=== PATIENT | female | born 1995 | race Two or more races ===

== ENCOUNTER 2019-10-23 10:22 | Emergency (ER) | payer OTHER, SELFPAY ==
[2019-10-23] VITALS (9 sets, daily range): BP systolic 108–122; BP diastolic 76–101; PULSE 62–73; RESP 14–20; TEMP 36.7; O2SAT 99–100
--- NOTE | ~2019-10-23 | XR_ITS ---
EXAMINATION: XR chest 1V portable DATE: 10/23/2019 11:31 INDICATION: Shortness of breath TECHNIQUE: frontal view of the chest was obtained. COMPARISON: Chest radiograph dated 01/22/2019 FINDINGS: The lungs remain clear with no focal airspace opacities, pulmonary edema, pleural effusion or pneumot horax. The cardiomediastinal silhouette is normal. Visualized bones and soft tissues are unremarkable . IMPRESSION: 1. No acute cardiopulmonary disease. Reviewed, dictated and finalized at location A.
--- NOTE | 2019-10-23 10:33 | ED.GENADULT ---
HPI - General Adult General Chief complaint: Shortness of Breath/Dyspnea Stated complaint: abdominal/chest pain/facial numbness Time Seen by Provider: 10/23/19 10:32 Source: patient Mode of arrival: ambulatory Limitations: no limitations History of Present Illness HPI narrative: Patient is here with complaint of abdominal and chest pain. She states it started as cramping in her lower abdomen traveled upward to pressure in her chest. She became anxious and then felt tingling across her face. All her symptoms have resolved. There is a family history of early heart disease in both her father and her aunt, her aunt from a heart attack in her 30s. She is currently on medication for an ear infection, antibiotics and pain medication. Onset (ago): minute(s) Location: chest and abdomen Severity: moderate Quality: sharp Pain Consistency: constant and now resolved Relieving factors: none Exacerbating factors: none Associated symptoms: shortness of breath Treatments prior to arrival: none Related Data Home Medications Medication Instructions Recorded Confirmed ciprofloxacin-dexamethasone drp 10/23/19 [Ciprodex] clindamycin HCl 10/23/19 hydrocodone-acetaminophen 10/23/19 ondansetron 10/23/19 Allergies Allergy/AdvReac Type Severity Reaction Status Date / Time Penicillins Allergy Itching Verified 10/23/19 10:32 Review of Systems Review of Systems: All systems reviewed & are unremarkable except as noted in HPI and below Constitutional: Constitutional: Reports as per HPI [facility] Surgical History Surgical History History of tubal ligation Hx of tonsillectomy Family History Family History (Updated 10/23/19 @ 11:28 by Anahy Bah PA-C) Father Acute myocardial infarction Other , paternal aunt Acute myocardial infarction Social History Social History (Updated 10/23/19 @ 11:29 by Anahy Bah PA-C) Smoking status: Never smoker Alcohol intake: never Substance use: never Living arrangements: with family Occupation/Education: unemployed Gender identity (if verbalized by the patient): Female Exam Const: General: no acute distress and alert Orientation/consciousness: patient oriented x3 HENMT: Head: normal to inspection Ears: TM's normal bilaterally (right occluded by cerumen, left with wick in place) Eyes: Pupils: Equal, round and reactive pupils present Neck: Carotids: other (no bruit) Chest: Chest palpation & inspection: normal inspection of the chest Other: no tenderness Resp: Effort & Inspection: normal respiratory effort Auscultation: clear to auscultation bilaterally Cardio: Rate: regular rate Rhythm: regular rhythm GI: GI Palp: Yes Soft to palpation Auscultation: normal bowel sounds Other: mild epigastric pain to palpation : General: Yes no CVA tenderness Skin: General skin exam: normal color Course Course Emergency Course: All labs and diagnostics reviewed with patient. There were no abnormalities, she is symptom-free. Recommend that she follow her up with her primary care physician as scheduled on Friday. Return to the emergency room should she have any chest pain that is radiating, shortness of breath, sweating. Vital Signs Vital signs: Vital Signs Temperature 36.7 C 10/23/19 10:26 Pulse Rate 73 10/23/19 10:26 Respiratory Rate 16 10/23/19 10:26 Blood Pressure 114/76 10/23/19 10:26 Pulse Oximetry 100 10/23/19 10:26 Temperature 36.7 C 10/23/19 10:26 Pulse Rate 73 10/23/19 10:26 Respiratory Rate 16 10/23/19 10:26 Blood Pressure 114/76 10/23/19 10:26 Pulse Oximetry 100 10/23/19 10:26 Medical Decision Making Vital Signs Vital Signs: Vital Signs Temperature 36.7 C 10/23/19 10:26 Pulse Rate 73 10/23/19 10:26 Respiratory Rate 16 10/23/19 10:26 Blood Pressure 114/76 10/23/19 10:26 Pulse Oximetry 100 10/23/19 10:26
--- NOTE | 2019-10-23 11:07 | ECG_ITS ---
Measurements Intervals [place] Rate: 62 P: 50 NC: 141 QRS: 74 QRSD: 92 T: 101 QT: 391 QTc: 400 Interpretive Statements SINUS RHYTHM ST-T WAVE ABNORMALITY IN ANTERIOR LEADS- CONSIDER ISCHEMIA BASELINE ARTIFACT- I, II, III, AVF ABNORMAL ECG Electronically Signed On 10-23-2019 19:31:48 CDT by Ciro Howell D.O.
[2019-10-23 11:32] LABS: Basophils Absolute Auto 0.1 K/mm3 (0.0-0.1); Basophils Percent Auto 0.7 % (0.2-1.2); Eosinophils Percent Auto 18.4 % (0-4.4); Hematocrit 42.1 % (37.0-47.0); Hemoglobin 14.1 g/dL (12.0-15.0); Immature Granulocyte Absolute 0.03 K/mm3 (0.00-0.031); Immature Granulocyte Percent A 0.3 % (0-0.5); Lymphocytes Percent Auto 20.8 % (18.3-44.2); Mean Corpuscular HGB Conc 33.5 g/dl (32-36); Mean Corpuscular Hemoglobin 31.1 pg (26-34); Mean Corpuscular Volume 92.7 fl (80-100); Mean Platelet Volume 11.1 fl (7.4-10.4); Monocytes Absolute Auto 0.8 K/mm3 (0.1-0.6); Monocytes Percent Auto 7.9 % (2.6-8.5); Neutrophils Absolute Auto 5.5 K/mm3 (1.3-6.7); Neutrophils Percent Auto 51.9 % (45.5-73.1); Platelet Count Result 377 k/mm3 (150-375); Red Blood Count 4.54 M/mm3 (4.2-5.4); Red Cell Distribution Width 12.2 % (11.5-14.5); White Blood Count 10.6 K/mm3 (4.5-10.0)
[2019-10-23 11:56] LABS: Troponin I < 0.012 ng/mL (0.000-0.034)
[2019-10-23 12:05] LABS: Alanine Aminotransferase 22 U/L (4-35); Albumin Level 4.5 g/dL (3.5-5.1); Alkaline Phosphatase 108 U/L (38-126); Anion Gap 12 mmol/L (8-16); Aspartate Amino Transferase 46 U/L (14-36); Bilirubin,Total 0.5 mg/dL (0.2-1.3); Blood Urea Nitrogen 3 mg/dL (7-17); Calcium 9.1 mg/dL (8.4-10.2); Carbon Dioxide 24 mmol/L (22-30); Chloride 104 mmol/L (98-107); Estimated CRCL calculation 128 ml/min; Estimated Glomerular Filt Rate > 60; Glucose 86 mg/dL (65-105); Potassium 3.9 mmol/L (3.4-5.0); Sodium 140 mmol/L (137-145)
== END 2019-10-23 13:01 | disposition home or self-care (01) ==
PROVIDERS: Physician Assistant; Emergency Provider Emergency Medicine
DX: K21.9 Gastro-esophageal reflux disease without esophagitis (principal); H66.90 Otitis media, unspecified, unspecified ear; R94.31 Abnormal electrocardiogram [ECG] [EKG]
CPT/HCPCS: 36415; 71045; 80053; 84484; 85025; 93005; 99284

== ENCOUNTER 2021-08-07 19:21 | Emergency (ER) | payer OTHER, SELFPAY ==
[2021-08-07 19:37] VITALS: BP 113/79; PULSE 99; RESP 20; TEMP 36.2; O2SAT 99
--- NOTE | 2021-08-07 20:07 | ED.URI ---
HPI - URI/Sore Throat General Chief Complaint: Upper Respiratory Infection Stated Complaint: sinus problems after mold removed from house Time Seen by Provider: 08/07/21 19:29 History of Present Illness HPI Narrative: Patient is a healthy 26-year-old here for evaluation of congestion, mild sore throat, and productive cough over the past 3 days. Patient states all of her children have similar symptoms. She is attempted Lizzeth, Claritin, and [id number] sore throat medicine without much relief. She denies any fevers, chills, chest pain, shortness of breath, headache, abdominal pain, leg swelling. No trismus, drooling, patient is tolerating her secretions. She is not vaccinated against COVID. She does state that she was removing mold from her bedroom prior to symptom onset, reports she was wearing a mask and using gloves. Related Data Home Medications Medication Instructions Recorded Confirmed ciprofloxacin 0.3 %-dexamethasone drp 10/23/19 0.1 % ear drops,suspension (Ciprodex) clindamycin HCl 300 mg capsule 10/23/19 hydrocodone 5 mg-acetaminophen 325 10/23/19 mg tablet ondansetron 4 mg disintegrating 10/23/19 tablet Allergies Allergy/AdvReac Type Severity Reaction Status Date / Time Penicillins Allergy Itching Verified 08/07/21 20:14 Review of Systems Review of Systems: Gen: Denies fevers or chills Eyes: Denies eye pain or visual change ENT: Reports congestion Respiratory: Reports cough. Denies shortness of breath CV: Denies chest pain or palpitations GI: Denies abdominal pain nausea, emesis or diarrhea denies burning, urgency, frequency or hematuria Musculoskeletal: Denies back pain or muscle pain Neuro: Denies numbness, tingling, weakness or focal weakness Skin: Denies rash Except as documented, all other systems reviewed and negative [facility] Surgical History Surgical History History of tubal ligation Hx of tonsillectomy Family History Family History (Updated 10/23/19 @ 11:28 by Anahy Bah PA-C) Father Acute myocardial infarction Other , paternal aunt Acute myocardial infarction Social History Social History (Updated 10/23/19 @ 11:29 by Anahy Bah PA-C) Smoking status: Never smoker Alcohol intake: never Substance use: never Gender identity (if verbalized by the patient): Female Exam Narrative: APPEARANCE: Well appearing, no pain in distress, well-nourished. Head normocephalic and atraumatic. EYES: PERRLA/EOMI, conjunctivae clear NOSE: No sinus tenderness. No nasal drainage EARS: External ear normal in appearance THROAT: Oropharynx is clear. Mucous membranes are moist. No exudates. No tonsillar swelling. NECK: Supple. No adenopathy, no masses. RESPIRATORY: Airway patent, respirations nonlabored. Clear to auscultation bilaterally, no rales, rhonchi, wheezing. CARDIOVASCULAR: Regular rate and rhythm without murmurs, rubs, or gallops. ABDOMINAL: Normoactive bowel sounds. Soft, nontender, nondistended. No rebound tenderness or guarding. MUSCULOSKELETAL: Extremities are warm and well-perfused. Moves all extremities well. No edema. NEURO: Normal speech. No focal neurologic deficits. SKIN: Skin is warm and dry. No rashes. PSYCHIATRIC: Normal affect/mood.. Course Vital Signs Vital signs: Vital Signs Temperature 97.1 F L 08/07/21 19:37 Pulse Rate 99 08/07/21 19:37 Respiratory Rate 20 08/07/21 19:37 Blood Pressure 113/79 08/07/21 19:37 Pulse Oximetry 99 08/07/21 19:37 Oxygen Delivery Room Air 08/07/21 19:37 Temperature 97.1 F L 08/07/21 19:37 Pulse Rate 99 08/07/21 19:37 Respiratory Rate 20 08/07/21 19:37 Blood Pressure 113/79 08/07/21 19:37 Pulse Oximetry 99 08/07/21 19:37 Oxygen Delivery Room Air 08/07/21 20:12 MDM - URI/Sore Throat MDM Narrative Medical decision making narrative: 26-year-old female here for evaluation of
[2021-08-07] MEDS: BENZONATATE 100 MG CAPSULE PO (20:11)
[2021-08-07 22:05] LABS: SARS-CoV-2 RNA PCR Negative
== END 2021-08-07 22:57 | disposition home or self-care (01) ==
PROVIDERS: Physician Assistant; Emergency Provider Emergency Medicine; PCP Family Medicine
DX: J06.9 Acute upper respiratory infection, unspecified (principal); Z20.822 Contact with and (suspected) exposure to COVID-19; Z28.310 Unvaccinated for COVID-19
CPT/HCPCS: 99283; A9270; C9803; U0003; U0005

== ENCOUNTER 2022-03-20 14:58 | Emergency (ER) | payer OTHER, SELFPAY ==
--- NOTE | 2022-03-20 15:00 | ED.URI ---
HPI - URI/Sore Throat General Chief Complaint: Upper Respiratory Infection Stated Complaint: Sore Throat Time Seen by Provider: 03/20/22 14:59 Source: patient Mode of arrival: ambulatory Limitations: no limitations History of Present Illness HPI Narrative: Gely is a 27-year-old female patient presenting to the clinic today with complaints of sore throat , body aches, chills, cough, nasal congestion, headache, and ear pain x4-5 days. She reports fever as high as 103F. MD elicited complaint: sore throat and nasal congestion Related Data Allergies Allergy/AdvReac Type Severity Reaction Status Date / Time Penicillins Allergy Itching Verified 03/20/22 15:00 Review of Systems Review of Systems: Pertinent positives per HPI. Patient denies any rash, headache, visual changes, dizziness, shortness of breath, chest pain, palpitations, nausea, vomiting, diarrhea, constipation, abdominal pain, or any urinary issues. PMFSH Surgical History Surgical History History of tubal ligation Hx of tonsillectomy Family History Family History Father Acute myocardial infarction Other , paternal aunt Acute myocardial infarction Social History Social History Smoking status: Never smoker Alcohol intake: never Substance use: never Gender identity (if verbalized by the patient): Female Comments At the time of my signature, I reviewed and agree with the nursing past medical, surgical, social, and family history. There is no relevant family history pertinent to the patient complaint. Exam Narrative: General: Well-developed, well nourished, in no apparent distress Head: Normocephalic, atraumatic Eyes: Pupils equally round and reactive to light bilaterally, EOM intact, sclera and conjunctive clear, no discharge, lids normal Ears: TMs intact and clear, ear canals clear, no drainage, grossly hearing normal. Nose: Nares patent, no discharge, no inflammation, no sinus tenderness. Mouth: Oral pharynx without lesions or masses, good dentition, MMM. Neck: Supple, trachea midline, no enlargement of anterior or posterior cervical nodes, no thyroid masses or goiter palpable. Cardio: Regular rate and rhythm, s1 and s2 normal, no murmur appreciated. Resp: Clear to auscultation bilaterally, no rhonchi, rales, wheezing or rubs Course Course Emergency Course: Portions of this record may have been created with voice recognition software. Level of Care: Express Care Visit Vital Signs Vital signs: Vital Signs Temperature 36.3 C L 03/20/22 15:04 Pulse Rate 91 03/20/22 15:04 Respiratory Rate 16 03/20/22 15:04 Blood Pressure 107/75 03/20/22 15:04 Pulse Oximetry 98 03/20/22 15:04 Oxygen Delivery Room Air 03/20/22 15:04 Temperature 36.3 C L 03/20/22 15:04 Pulse Rate 91 03/20/22 15:04 Respiratory Rate 16 03/20/22 15:04 Blood Pressure 107/75 03/20/22 15:04 Pulse Oximetry 98 03/20/22 15:04 Oxygen Delivery Room Air 03/20/22 15:04 Vital signs reviewed MDM - URI/Sore Throat MDM Narrative Medical decision making narrative: At the time of visit patient is resting comfortably on the exam table. Strep screen and influenza testing were negative in the clinic today. I suspect the patient has viral pharyngitis/ upper respiratory infection. Supportive measures were discussed with the patient she voiced understanding discharge instructions and agrees to treatment plan. Differential Diagnosis Differential diagnosis: Likely upper respiratory infection, otitis media, sinusitis, viral infection, bronchitis, influenza, pharyngitis and other ( COVID) Discharge Plan Discharge Clinical Impression: Viral infection Upper respiratory infection Qualifiers: URI type: unspecified URI Qualified Code(s): J06.9 - Acute u
[2022-03-20 15:04] VITALS: BP 107/75; PULSE 91; RESP 16; TEMP 36.3; O2SAT 98
== END 2022-03-20 15:34 | disposition home or self-care (01) ==
PROVIDERS: Emergency Provider Nurse Practitioner Family; PCP Family Medicine
DX: B34.9 Viral infection, unspecified (principal); J06.9 Acute upper respiratory infection, unspecified; J02.9 Acute pharyngitis, unspecified
CPT/HCPCS: 87081; 87804; 87880; 99213; G0463

== ENCOUNTER 2022-05-13 03:22 | Emergency (ER) | payer OTHER, SELFPAY ==
[2022-05-13 03:26] VITALS: BP 119/78; PULSE 85; RESP 16; TEMP 36.5; O2SAT 98
--- NOTE | 2022-05-13 03:54 | ED.GENADULT ---
HPI - General Adult General Chief complaint: Ear Stated complaint: sharp right ear pain, sore throat Time Seen by Provider: 05/13/22 03:45 History of Present Illness HPI narrative: Patient 26-year-old female who presents emerged part with chief complaint of right ear pain. Patient reports that she several bit of sinus drainage and reports that she has had pain in her right ear that started this evening. The patient reports that she developed nausea and reports that pain is worse with movement Related Data Allergies Allergy/AdvReac Type Severity Reaction Status Date / Time Penicillins Allergy Itching Verified 03/20/22 15:00 Review of Systems Review of Systems: A 10 system review of systems was completed on the patient and is negative except for what is stated in the HPI. Nursing and ancillary documentation was reviewed. [facility] Surgical History Surgical History History of tubal ligation Hx of tonsillectomy Family History Family History Father Acute myocardial infarction Other , paternal aunt Acute myocardial infarction Social History Social History Smoking status: Never smoker Alcohol intake: never Substance use: never Living arrangements: with family Occupation/Education: unemployed Gender identity (if verbalized by the patient): Female Exam Narrative: GENERAL: Well-appearing, well-nourished, and in no acute distress. HEAD: Normocephalic, atraumatic. EYES: PERRLA and EOMI. ENT: Nares clear, no rhinorrhea or epistaxis. Mucous membranes moist. There is cerumen present in the right external auditory canal showing significant impaction but there is erythema of the tympanic membrane. NECK: Supple. CHEST: Clear to auscultation. No respiratory distress. HEART: Regular rate and rhythm. No murmur heard. Normal peripheral pulses. ABDOMEN: Soft, nontender, nondistended, normal active bowel sounds. EXTREMITIES: Normal range of motion. No edema. SKIN: Warm, dry, no rash. NEURO: No focal deficits. Alert and oriented x3. PSYCH: Normal mood and affect. Course Vital Signs Vital signs: Vital Signs Temperature 36.5 C 05/13/22 03:26 Pulse Rate 85 05/13/22 03:26 Respiratory Rate 16 05/13/22 03:26 Blood Pressure 119/78 05/13/22 03:26 Pulse Oximetry 98 05/13/22 03:26 Oxygen Delivery Room Air 05/13/22 03:26 Temperature 36.5 C 05/13/22 03:26 Pulse Rate 85 05/13/22 03:26 Respiratory Rate 16 05/13/22 03:26 Blood Pressure 119/78 05/13/22 03:26 Pulse Oximetry 98 05/13/22 03:26 Oxygen Delivery Room Air 05/13/22 03:26 Medical Decision Making MDM Narrative Medical decision making narrative: Patient's ear was irrigated by the nursing staff which cleared out the cerumen impaction. Patient was started on Omnicef and will also be started on a prescription for Zofran and given a prescription for ibuprofen. Differential diagnosis included cerumen impaction otitis media sinus Vital Signs Vital Signs: Vital Signs Temperature 36.5 C 05/13/22 03:26 Pulse Rate 85 05/13/22 03:26 Respiratory Rate 16 05/13/22 03:26 Blood Pressure 119/78 05/13/22 03:26 Pulse Oximetry 98 05/13/22 03:26 Oxygen Delivery Room Air 05/13/22 03:26 Temperature 36.5 C 05/13/22 03:26 Pulse Rate 85 05/13/22 03:26 Respiratory Rate 16 05/13/22 03:26 Blood Pressure 119/78 05/13/22 03:26 Pulse Oximetry 98 05/13/22 03:26 Oxygen Delivery Room Air 05/13/22 03:26 Discharge Plan Discharge Clinical Impression: Acute right otitis media Cerumen impaction Qualifiers: Laterality: right Qualified Code(s): H61.21 - Impacted cerumen, right ear Patient Disposition: Home, Self-Care Condition: Stable Instructions: Antibiotic Form, Ear Infection (ED), Earache (
[2022-05-13] MEDS: IBUPROFEN 400 MG TABLET 800 MG PO (04:07)
[2022-05-13] MEDS: ONDANSETRON HCL ODT 4 MG TABLET PO (04:07)
[2022-05-13] MEDS: CEFDINIR 300 MG CAPSULE PO (04:12)
== END 2022-05-13 04:15 | disposition home or self-care (01) ==
LOC: ANHED 04:03
PROVIDERS: Emergency Provider Emergency Medicine; PCP Family Medicine
DX: H66.91 Otitis media, unspecified, right ear (principal)
CPT/HCPCS: 99283; A9270

== ENCOUNTER 2022-11-14 20:43 | Emergency (ER) | payer BC, OTHER, SELFPAY ==
[2022-11-14 20:48] VITALS: BP 119/81; PULSE 78; RESP 20; TEMP 36.3; O2SAT 100
--- NOTE | 2022-11-14 22:18 | PC.NURSE ---
Pt walked out without being seen by provider at 2219.
== END 2022-11-14 23:32 | disposition left against medical advice (07) ==
LOC: ANHED 22:28
PROVIDERS: PCP Family Medicine
DX: R51.9 Headache, unspecified (principal)
CPT/HCPCS: 99199

== ENCOUNTER 2022-11-15 08:32 | Emergency (ER) | payer OTHER, SELFPAY ==
[2022-11-15] VITALS (18 sets, daily range): BP systolic 101–122; BP diastolic 67–91; PULSE 72–73; RESP 17–18; TEMP 36.4; O2SAT 99–100
--- NOTE | 2022-11-15 09:10 | ED.HA ---
HPI - Headache General Chief Complaint: Headache Stated Complaint: migraine Time Seen by Provider: 11/15/22 09:07 Source: patient and family (spouse) Mode of arrival: ambulatory Limitations: no limitations History of Present Illness HPI Narrative: Patient is a pleasant 27-year-old female with a past medical history of migraines who presents emergency department ambulatory with a steady gait with her spouse at bedside for evaluation of a migraine headache. Patient states she has a history of migraines and typically last 2-3 days however this was the day before. She states that the pain has been continuous and normal so humerus sensation. She has also had chills. The pain starts in bilateral temples and goes around to the base of her skull. She states she has had a lot of nausea and the head pain is worse with movement of her head and that is when she also becomes nauseated. It is she denies any fever. She had chills. She denies vomiting, diarrhea, numbness or tingling upper extremities, neck pain, recent exposure to any type of COVID/flu or other viral illness, recent head injury, vision loss, chance of or any other symptoms. Related Data Allergies Allergy/AdvReac Type Severity Reaction Status Date / Time Penicillins Allergy Itching Verified 11/15/22 09:04 Review of Systems Review of Systems: CONSTITUTIONAL: chills. Denies fever or sweats. EYES: light sensitivity. Denies visual changes, redness, or discharge. ENT: sound sensitivity. Denies rhinorrhea, congestion, sore throat, or otalgia. CARDIOVASCULAR: Denies chest pain, palpitations, or edema. RESPIRATORY: Denies cough or dyspnea. GASTROINTESTINAL: nausea. Denies abdominal pain, vomiting, or diarrhea. GENITOURINARY: Denies dysuria or hematuria. SKIN: Denies rash or itching. MUSCULOSKELETAL: Denies back pain, joint pain, or myalgia. NEUROLOGIC: headache present. denies numbness, or weakness. PSYCHIATRIC: Denies anxiety or depression. All systems reviewed & are unremarkable except as noted in HPI and below PMFSH Surgical History Surgical History History of tubal ligation Hx of tonsillectomy Family History Family History Father Acute myocardial infarction Other , paternal aunt Acute myocardial infarction Social History Social History Smoking status: Never smoker Alcohol intake: never Substance use: never Living arrangements: with family Occupation/Education: unemployed Gender identity (if verbalized by the patient): Female Exam Narrative: GENERAL: Well-appearing, well-nourished, and in no acute distress. lying on exam stretcher in dark with sunglasses on. HEAD: Normocephalic, atraumatic. EYES: PERRLA and EOMI. ENT: Nares clear, no rhinorrhea or epistaxis. Mucous membranes moist. NECK: Supple. CHEST: Clear to auscultation. No respiratory distress. HEART: Regular rate and rhythm. No murmur heard. Normal peripheral pulses. ABDOMEN: Soft, nontender, nondistended, normal active bowel sounds. EXTREMITIES: Normal range of motion. No edema. SKIN: Warm, dry, no rash. NEURO: No focal deficits. Alert and oriented x3. CN II-XII grossly intact. UE and LE distal pulses, sensation, cap refill, temperature, patellar reflex and strength intact and equal bilaterally.?steady gait. negative Romberg PSYCH: Normal mood and affect. Course Reevaluation(s) Reevaluation #1: patient sleeping at this time Date: 11/15/22 Time: 10:25 Reevaluation #2: patient states her migraine pain has improved, she is comfortable going home at this time. spouse will be driving her Date: 11/15/22 Time: 10:48 Vital Signs Vital signs: Vital Signs Temperature 97.5 F L 11/15/22 08:43 Pulse Rate 72 11/15/22 08:43 Respiratory Rate 18 11/15/22 08:43 Blood Pressure 122/74 11/15/22 0
[2022-11-15] MEDS: SODIUM CHLORIDE 0.9% IV 1,000 ML 999 ML IV CONT (09:46)
[2022-11-15] MEDS: KETOROLAC 30 MG/ML VIAL (*BKC) IV PUSH (09:47)
[2022-11-15] MEDS: ONDANSETRON INJ 4 MG/2 ML VIAL IV PUSH (09:47)
[2022-11-15] MEDS: DIHYDROERGOTAMINE MESYLATE 1 MG/ML AMP IV PUSH (09:53)
== END 2022-11-15 11:21 | disposition home or self-care (01) ==
PROVIDERS: Emergency Provider Nurse Practitioner; PCP Family Medicine
DX: G43.009 Migraine without aura, not intractable, without status migrainosus (principal)
CPT/HCPCS: 96361; 96374; 96375; 99284; J1110; J1885; J2405; J7030

== ENCOUNTER 2023-01-03 12:57 | Emergency (ER) | payer OTHER, SELFPAY ==
[2023-01-03 13:33] VITALS: BP 125/86; PULSE 89; RESP 16; TEMP 37.2; O2SAT 100
--- NOTE | 2023-01-03 14:21 | ED.URI ---
HPI - URI/Sore Throat General Chief Complaint: Upper Respiratory Infection Stated Complaint: cough,sinus drainage,chest congestion Time Seen by Provider: 01/03/23 14:04 Source: patient and RN notes reviewed Mode of arrival: ambulatory Limitations: no limitations History of Present Illness HPI Narrative: Patient presents today with a 2 day history of cough, rhinorrhea, postnasal drip, chest congestion, and fever up to 100.5. She has been taking Claritin, Mucinex DM with some mild relief. Children are also ill with similar symptoms. Related Data Home Medications Medication Instructions Recorded Confirmed No Home Medications 01/03/23 01/03/23 Allergies Allergy/AdvReac Type Severity Reaction Status Date / Time Penicillins Allergy Itching Verified 01/03/23 14:04 Review of Systems Review of Systems: CONSTITUTIONAL: Denies body aches, chills, or sweats.+ fever EYES: Denies visual changes, redness, or discharge. ENT: Denies congestion, sore throat, or otalgia.+ rhinorrhea, postnasal drip CARDIOVASCULAR: Denies chest pain, palpitations, or edema. RESPIRATORY: Denies dyspnea.+ cough, chest congestion GASTROINTESTINAL: Denies abdominal pain, nausea, vomiting, or diarrhea. GENITOURINARY: Denies dysuria or hematuria. SKIN: Denies rash, itching, or wounds. MUSCULOSKELETAL: Denies back pain, joint pain, or myalgia. NEUROLOGIC: Denies headache, numbness, tingling, or weakness. PSYCH: Denies depression or anxiety. [facility] Surgical History Surgical History History of tubal ligation Hx of tonsillectomy Family History Family History Father Acute myocardial infarction Other , paternal aunt Acute myocardial infarction Social History Social History Smoking status: Never smoker Alcohol intake: never Substance use: never Living arrangements: with family Occupation/Education: unemployed Gender identity (if verbalized by the patient): Female Comments At time of signature, I have reviewed and agree with nursing past medical, surgical, social and family history unless otherwise noted. Please see nursing chart for further information. There is no relevant family history pertinent to the presenting complaint Exam Narrative: GENERAL: Well-appearing, well-nourished, and in no acute distress. HEAD: Normocephalic, atraumatic. EYES: EOMI. No redness or drainage. Conjunctivae normal. ENT: Mucous membranes pink and moist. Nares clear. No rhinorrhea. TMs normal bilaterally. Throat normal. Uvula midline. NECK: Normal AROM. Supple. No lymphadenopathy. CHEST: No respiratory distress. Clear to auscultation. HEART: Regular rate and rhythm. No murmur appreciated. Normal peripheral pulses. EXTREMITIES: Normal range of motion. No edema. SKIN: Warm, dry, no rash. Capillary refill normal. Normal skin turgor. NEURO: No focal deficits. Alert and oriented x3. Gait steady. PSYCH: Normal affect. No signs of depression or anxiety. Course Course Level of Care: Express Care Visit Vital Signs Vital signs: Vital Signs Temperature 99.0 F 01/03/23 13:33 Pulse Rate 89 01/03/23 13:33 Respiratory Rate 16 01/03/23 13:33 Blood Pressure 125/86 01/03/23 13:33 Pulse Oximetry 100 01/03/23 13:33 Oxygen Delivery Room Air 01/03/23 13:33 Temperature 99.0 F 01/03/23 13:33 Pulse Rate 89 01/03/23 13:33 Respiratory Rate 16 01/03/23 13:33 Blood Pressure 125/86 01/03/23 13:33 Pulse Oximetry 100 01/03/23 13:33 Oxygen Delivery Room Air 01/03/23 13:33 Reviewed. Pt has been instructed to follow up with her PCP regarding her elevated blood pressure today. MDM - URI/Sore Throat MDM Narrative Medical decision making narrative: Rapid strep negative. Culture pending. Symptoms are likely viral in foreign
== END 2023-01-03 15:34 | disposition home or self-care (01) ==
PROVIDERS: Emergency Provider Nurse Practitioner; PCP Family Medicine
DX: J06.9 Acute upper respiratory infection, unspecified (principal)
CPT/HCPCS: 87081; 87147; 87880; 99213; G0463

== ENCOUNTER 2023-09-06 15:59 | Emergency (ER) | payer OTHER, SELFPAY ==
--- NOTE | ~2023-09-06 | XR_ITS ---
EXAMINATION: XR ankle LT min 3V DATE: 09/06/2023 16:34 INDICATION: Left ankle injury. TECHNIQUE: 3 views of left ankle were obtained. COMPARISON: None. FINDINGS: Bone alignment is normal. No fracture. Joint spaces are normal. There is ankle soft tissue swelling. IMPRESSION: 1. No fracture. Reviewed, dictated and finalized at location E. IMPRESSION: 1. No fracture.
--- NOTE | ~2023-09-06 | US_ITS ---
EXAMINATION: US venous doppler LE RT DATE: 09/06/2023 18:08 INDICATION: Right lower limb pain and swelling. TECHNIQUE: Grayscale ultrasound images without and with compression and Doppler ultrasound images of the right lower extremity veins were obtained. COMPARISON: None. FINDINGS: The visualized portions of right common femoral vein, profunda (deep) femoral vein, femoral vein, pop liteal vein, peroneal veins, posterior tibial veins, and greater saphenous vein outflow are patent. IMPRESSION: 1. No deep venous thrombosis. Reviewed, dictated and finalized at location E.
--- NOTE | ~2023-09-06 | XR_ITS ---
EXAMINATION: XR ankle RT min 3V DATE: 09/06/2023 16:33 INDICATION: Right ankle injury. TECHNIQUE: 3 views of right ankle were obtained. COMPARISON: None. FINDINGS: Bone alignment is normal. No fracture. There is mild midfoot osteoarthritis. There is an en thesophyte at plantar aspect of calcaneal tuberosity. Ankle soft tissue swelling is noted. IMPRESSION: 1. Mild midfoot osteoarthritis. Reviewed, dictated and finalized at location E.
[2023-09-06 16:11] VITALS: BP 129/76; PULSE 75; RESP 20; TEMP 36.6; O2SAT 98
--- NOTE | 2023-09-06 16:19 | ED.LOWEXIN ---
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 She is complaining of 8/10 pain. It has become difficult to bare weight on the right. She felt/heard a snap/ pop . She took pain medication yesterday and today, Excedrin at 11:30. She was also around ticks and pulled at least one off her her immediately after finding them. Does not believe any were on for 24 hours and she was able to remove the entire insect. No prior surgery on them. She is having some paresthesias in her right foot and mid calf. No pain in proximal calves. Patient states she has a high pain tolerance after having a natrual . Related Data Allergies Allergy/AdvReac Type Severity Reaction Status Date / Time Penicillins Allergy Itching Verified 09/06/23 16:01 [facility] Surgical History Surgical History History of tubal ligation Hx of tonsillectomy Family History Family History Father Acute myocardial infarction Other , paternal aunt Acute myocardial infarction Social History Social History (Updated 09/08/23 @ 10:02 by Negar Pichardo MD) Smoking status: Never smoker Alcohol intake: never Substance use: never Living arrangements: with family Additional living arrangements comments: and at least 1 child Occupation/Education: unemployed Gender identity (if verbalized by the patient): Female Exam Narrative: GENERAL: Well-appearing, well-nourished, and in no acute distress. HEAD: Normocephalic, atraumatic. EYES: Non injected, non icteric though appears a bit drowsy ENT: Nares clear, no rhinorrhea or epistaxis. NECK: Supple. CHEST: Speaking in full sentences. No respiratory distress. HEART: Regular rate and rhythm. . ABDOMEN: Soft, nondistended. EXTREMITIES: 1+ pedal edema in right foot. No TTP with calf squeeze bilaterally and no pain with squeeze at proximal tibia/fibula b/l. Only able to demonstrate slight dorsiflexion/plantarflexion on the right due to pain. No ecchymosis over malleoli/midfoot/plantar aspect. SKIN: Warm, dry. Scattered insect bites, none targetoid. NEURO: Alert and oriented . sensation intact throughout feet. PSYCH: Normal mood and affect Course Vital Signs Vital signs: Vital Signs Temperature 97.9 F 09/06/23 16:11 Pulse Rate 75 09/06/23 16:11 Respiratory Rate 20 09/06/23 16:11 Blood Pressure 129/76 09/06/23 16:11 Pulse Oximetry 98 09/06/23 16:11 Temperature 97.9 F 09/06/23 18:00 Pulse Rate 78 09/06/23 18:00 Respiratory Rate 16 09/06/23 18:00 Blood Pressure 118/68 09/06/23 18:00 Pulse Oximetry 100 09/06/23 18:00 MDM - Extremity Injury (Lower) MDM Narrative Medical decision making narrative: Patient presents with bilateral (though R > L) ankle pain and swelling after rolling her ankles while camping. In the emergency department they are afebrile with vital signs within normal limits. Patient given a one time dose of doxycycline given the tick bite exposure, as prophylaxis. Labs unremarkable as is imaging. Jonn wrap applied and patient informed of findings/work up. Advised on R-I-C-E and other conservative management. Reassured about absence of blood clot. Discharged in stable condition. Differential Diagnosis Differential diagnosis: Likely ankle sprain and strain and other (acute heart failure; DVT; fracture/dislocation) Lab Data Attestation: I reviewed the patient's lab results. Lab results narrative:
[2023-09-06] MEDS: DOXYCYCLINE HYCLATE 100 MG TABLET 200 MG PO (16:33)
[2023-09-06] MEDS: HYDROcodone/acetaminophen (*CRX) 5-325 MG TABLET 1 TAB PO (16:34)
[2023-09-06 17:08] LABS: Basophils Absolute Auto 0.1 K/mm3 (0.0-0.1); Basophils Percent Auto 0.7 % (0.2-1.2); Eosinophils Percent Auto 10.4 % (0-4.4); Hematocrit 42.7 % (37.0-47.0); Hemoglobin 14.2 g/dL (12.0-15.0); Immature Granulocyte Absolute 0.03 K/mm3 (0.00-0.031); Immature Granulocyte Percent A 0.3 % (0-0.5); Lymphocytes Absolute Auto 1.74 K/mm3 (0.9-3.2); Lymphocytes Percent Auto 17.4 % (18.3-44.2); Mean Corpuscular HGB Conc 33.3 g/dl (32-36); Mean Corpuscular Hemoglobin 31.7 pg (26-34); Mean Corpuscular Volume 95.3 fl (80-100); Mean Platelet Volume 9.8 fl (7.4-10.4); Monocytes Absolute Auto 0.7 K/mm3 (0.1-0.6); Monocytes Percent Auto 7.4 % (2.6-8.5); Neutrophils Absolute Auto 6.4 K/mm3 (1.3-6.7); Neutrophils Percent Auto 63.8 % (45.5-73.1); Platelet Count Result 343 k/mm3 (150-375); Red Blood Count 4.48 M/mm3 (4.2-5.4); Red Cell Distribution Width 12.1 % (11.5-14.5)
[2023-09-06 17:18] LABS: Prothrombin Time 13.6 Seconds (11.1-14.7)
[2023-09-06 17:19] LABS: Partial Thromboplastin Time 28.2 Seconds (22.3-36.8)
[2023-09-06 17:28] LABS: Anion Gap 6 mmol/L (4-12); Blood Urea Nitrogen 8 mg/dL (7-17); Calcium 8.8 mg/dL (8.4-10.2); Carbon Dioxide 28 mmol/L (22-30); Chloride 106 mmol/L (98-107); Estimated CRCL calculation 98 ml/min; Estimated Glomerular Filt Rate > 60; Glucose 99 mg/dL (65-110); Potassium 3.8 mmol/L (3.4-5.0); Sodium 140 mmol/L (137-145)
[2023-09-06 17:30] LABS: D Dimer 0.56 ug/mL (<0.48)
[2023-09-06 17:37] LABS: NT Pro B Type Natriuretic Pept 53 pg/mL (19.9-100)
[2023-09-06 18:00] VITALS: BP 118/68; PULSE 78; RESP 16; TEMP 36.6; O2SAT 100
[2023-09-06] MEDS: KETOROLAC 30 MG/ML VIAL (*BKC) 15 MG IM (18:47)
== END 2023-09-06 19:01 | disposition home or self-care (01) ==
PROVIDERS: Emergency Provider Student in an Organized Health Care Education/Training Program; PCP Family Medicine
DX: S93.401A Sprain of unspecified ligament of right ankle, initial encounter (principal); S96.911A Strain of unspecified muscle and tendon at ankle and foot level, right foot, initial encounter; T14.8XXA Other injury of unspecified body region, initial encounter; M19.071 Primary osteoarthritis, right ankle and foot; W57.XXXA Bitten or stung by nonvenomous insect and other nonvenomous arthropods, initial encounter; X50.9XXA Other and unspecified overexertion or strenuous movements or postures, initial encounter
CPT/HCPCS: 36415; 73610; 80048; 81025; 83880; 85025; 85380; 85610; 85730; 93971; 96372; 99284; A9270; J1885

== ENCOUNTER 2023-10-02 10:56 | Emergency (ER) | payer OTHER, SELFPAY ==
[2023-10-02 11:05] VITALS: BP 114/75; PULSE 70; RESP 16; TEMP 36.9; O2SAT 98
--- NOTE | 2023-10-02 12:13 | ED.EAR ---
HPI - Ear Problem General Chief complaint: Ear Stated complaint: left ear pain,swelling,decreased hearing Time Seen by Provider: 10/02/23 12:08 Source: patient and RN notes reviewed Mode of arrival: ambulatory Limitations: no limitations History of Present Illness HPI Narrative: Patient presents today complaining of left ear pain with decreased hearing x1 week, worse over the last 4 days. She has been swimming frequently prior to onset of symptoms. She has been taking Tylenol and ibuprofen as well as using warm and cool compresses and swimmer's ear drops without much relief. Denies any additional cold symptoms. No drainage. Related Data Home Medications Medication Instructions Recorded Confirmed cetirizine 10 mg tablet (Zyrtec) 10 mg PO DAILY 10/02/23 10/02/23 Allergies Allergy/AdvReac Type Severity Reaction Status Date / Time Penicillins Allergy Itching Verified 10/02/23 10:58 Review of Systems Review of Systems: CONSTITUTIONAL: Denies body aches, fever, chills, or sweats. EYES: Denies visual changes, redness, or discharge. ENT: Denies rhinorrhea, congestion, sore throat. + left ear pain CARDIOVASCULAR: Denies chest pain, palpitations, or edema. RESPIRATORY: Denies cough or dyspnea. GASTROINTESTINAL: Denies abdominal pain, nausea, vomiting, or diarrhea. GENITOURINARY: Denies dysuria or hematuria. SKIN: Denies rash, itching, or wounds. MUSCULOSKELETAL: Denies back pain, joint pain, or myalgia. NEUROLOGIC: Denies headache, numbness, tingling, or weakness. PSYCH: Denies depression or anxiety. [facility] Surgical History Surgical History History of tubal ligation Hx of tonsillectomy Family History Family History Father Acute myocardial infarction Other , paternal aunt Acute myocardial infarction Social History Social History Smoking status: Never smoker Alcohol intake: never Substance use: never Living arrangements: with family Additional living arrangements comments: and at least 1 child Occupation/Education: unemployed Gender identity (if verbalized by the patient): Female Comments At time of signature, I have reviewed and agree with nursing past medical, surgical, social and family history unless otherwise noted. Please see nursing chart for further information. There is no relevant family history pertinent to the presenting complaint Exam Narrative: GENERAL: Well-appearing, well-nourished, and in no acute distress. HEAD: Normocephalic, atraumatic. EYES: EOMI. No redness or drainage. Conjunctivae normal. ENT: Mucous membranes pink and moist. Nares clear. No rhinorrhea. Right TM and canal normal. Left TM moderately swollen and mildly erythematous with moist thick white material in the canal. Movement and tragal tenderness present. NECK: Normal AROM. MUSCULOSKELETAL: No bony tenderness. EXTREMITIES: Normal range of motion. No edema. SKIN: Warm, dry, no rash. Capillary refill normal. Normal skin turgor. NEURO: No focal deficits. Alert and oriented x3. Gait steady. PSYCH: Normal affect. No signs of depression or anxiety. Course Course Level of Care: Express Care Visit Vital Signs Vital signs: Vital Signs Temperature 98.5 F 10/02/23 11:05 Pulse Rate 70 10/02/23 11:05 Respiratory Rate 16 10/02/23 11:05 Blood Pressure 114/75 10/02/23 11:05 Pulse Oximetry 98 10/02/23 11:05 Oxygen Delivery Room Air 10/02/23 11:05 Temperature 98.5 F 10/02/23 11:05 Pulse Rate 70 10/02/23 11:05 Respiratory Rate 16 10/02/23 11:05 Blood Pressure 114/75 10/02/23 11:05 Pulse Oximetry 98 10/02/23 11:05 Oxygen Delivery Room Air 10/02/23 11:05 Reviewed Medical Decision Making MDM Narrative Medical decision making narrative: Patient's exam i
== END 2023-10-02 12:21 | disposition home or self-care (01) ==
PROVIDERS: Emergency Provider Nurse Practitioner; PCP Family Medicine
DX: H60.502 Unspecified acute noninfective otitis externa, left ear (principal)
CPT/HCPCS: 99213; G0463

== ENCOUNTER 2023-10-03 07:31 | Emergency (ER) | payer OTHER, SELFPAY ==
[2023-10-03 07:33] VITALS: BP 131/78; PULSE 62; RESP 16; TEMP 36.4; O2SAT 100
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
[2023-10-03] MEDS: HYDROGEN PEROXIDE 3% SOLN(*SP) 473 ML BOTTLE IRRIGATION (09:03)
[2023-10-03] MEDS: HYDROcodone/acetaminophen (*CRX) 5-325 MG TABLET 1 TAB PO (09:33)
== END 2023-10-03 09:38 | disposition home or self-care (01) ==
PROVIDERS: Emergency Provider Student in an Organized Health Care Education/Training Program; PCP Family Medicine
DX: H60.92 Unspecified otitis externa, left ear (principal)
CPT/HCPCS: 99283; A9270

== ENCOUNTER 2024-02-11 18:46 | Emergency (ER) | payer OTHER, SELFPAY ==
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
--- NOTE | ~2024-02-11 | XR_ITS ---
EXAMINATION: XR foot RT min 3V DATE: 02/11/2024 22:44 INDICATION: Right foot pain post fall TECHNIQUE: Dorsoplantar, two oblique and lateral views of the right foot were obtained. COMPARISON: None. FINDINGS: Alignment is normal. No fracture. Minimal osteoarthritis of the joints in the mid and forefoot. Soft tissues are unremarkable. IMPRESSION: 1. 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 No acute osseous abnormality. Reviewed, dictated and finalized at location A. GER [employer]PLY CHAIN IMPRESSION: 1. 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 No acute osseous abnor mality.
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
--- NOTE | ~2024-02-11 | XR_ITS ---
EXAMINATION: XR knee RT 3V DATE: 02/11/2024 22:44 INDICATION: Right knee pain post injury TECHNIQUE: Anteroposterior, oblique and crosstable lateral views of the right knee were obtained COMPARISON: None. FINDINGS: Subtle nondisplaced sagittally oriented fracture at the junction of the medial to lateral thirds of t he lateral tibial plateau. No significant fracture gap or incongruity at the articular surface. Small layering lipohemarthrosis. IMPRESSION: 1. Nondisplaced intra-articular fracture of the lateral tibial plateau with small lipohemarthrosis. Reviewed, dictated and finalized at location A. NG HOST IMPRESSION: 1. Nondisplaced intra-articular fracture of the lateral tibial plateau with sma ll lipohemarthrosis.
[2024-02-11 18:59] VITALS: BP 115/76; PULSE 76; RESP 18; TEMP 36.5; O2SAT 100
[2024-02-11 21:56] VITALS: BP 111/78; PULSE 73; RESP 17; TEMP 36.8; O2SAT 100
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
[2024-02-11 22:47] LABS: Basophils Absolute Auto 0.1 K/mm3 (0.0-0.1); Basophils Percent Auto 0.4 % (0.2-1.2); Eosinophils Absolute Auto 0.4 K/mm3 (0-0.3); Eosinophils Percent Auto 2.5 % (0-4.4); Hematocrit 45.6 % (37.0-47.0); Hemoglobin 15.2 g/dL (12.0-15.0); Immature Granulocyte Absolute 0.04 K/mm3 (0.00-0.031); Immature Granulocyte Percent A 0.3 % (0-0.5); Lymphocytes Absolute Auto 1.59 K/mm3 (0.9-3.2); Lymphocytes Percent Auto 11.4 % (18.3-44.2); Mean Corpuscular HGB Conc 33.3 g/dl (32-36); Mean Corpuscular Hemoglobin 31.9 pg (26-34); Mean Corpuscular Volume 95.8 fl (80-100); Mean Platelet Volume 9.8 fl (7.4-10.4); Monocytes Absolute Auto 0.8 K/mm3 (0.1-0.6); Monocytes Percent Auto 5.5 % (2.6-8.5); Neutrophils Absolute Auto 11.2 K/mm3 (1.3-6.7); Neutrophils Percent Auto 79.9 % (45.5-73.1); Platelet Count Result 348 k/mm3 (150-375); Red Blood Count 4.76 M/mm3 (4.2-5.4); Red Cell Distribution Width 11.9 % (11.5-14.5)
[2024-02-11] MEDS: ONDANSETRON INJ 4 MG/2 ML VIAL IV PUSH (22:49)
[2024-02-11] MEDS: MORPHINE SULFATE (*CRX) 4 MG/ML INJ IV PUSH (22:50)
[2024-02-11 22:56] LABS: Alanine Aminotransferase 30 U/L (6-35); Albumin Level 4.4 g/dL (3.5-5.1); Alkaline Phosphatase 93 U/L (38-126); Anion Gap 9 mmol/L (4-12); Aspartate Amino Transferase 45 U/L (14-36); Bilirubin,Total 0.6 mg/dL (0.2-1.3); Blood Urea Nitrogen 9 mg/dL (7-17); Calcium 8.5 mg/dL (8.4-10.2); Carbon Dioxide 28 mmol/L (22-30); Chloride 99 mmol/L (98-107); Estimated CRCL calculation 96 ml/min; Estimated Glomerular Filt Rate > 60; Glucose 102 mg/dL (65-110); Potassium 3.9 mmol/L (3.4-5.0); Sodium 136 mmol/L (137-145)
[2024-02-11 22:57] LABS: Prothrombin Time 13.7 Seconds (11.1-14.7)
[2024-02-11 23:09] LABS: SPREG INTERNAL CONTROL Positive; Serum Qual hCG Negative
[2024-02-11 23:45] VITALS: BP 126/76; PULSE 67; RESP 14; O2SAT 100
== END 2024-02-12 00:33 | disposition home or self-care (01) ==
PROVIDERS: Emergency Provider Physician Assistant
DX: S02.2XXA Fracture of nasal bones, initial encounter for closed fracture (principal); S82.144A Nondisplaced bicondylar fracture of right tibia, initial encounter for closed fracture; M47.812 Spondylosis without myelopathy or radiculopathy, cervical region; V03.00XA Pedestrian on foot injured in collision with car, pick-up truck or van in nontraffic accident, initial encounter
CPT/HCPCS: 36415; 70450; 70486; 71260; 72125; 72129; 72132; 73562; 73630; 74177; 80053; 84703; 85025; 85610; 85730; 96374; 96375; 99284; J2270; J2405; Q9967

== ENCOUNTER 2024-04-29 09:21 | Emergency (ER) | payer OTHER, SELFPAY ==
[2024-04-29 09:34] VITALS: BP 100/88; PULSE 99; RESP 16; TEMP 36.9; O2SAT 99
--- NOTE | 2024-04-29 09:51 | ED_ITS ---
HPI - URI/Sore Throat General Chief Complaint: Upper Respiratory Infection Stated Complaint: fever,sore throat, strep exp Source: patient, RN notes reviewed and old records reviewed Mode of arrival: ambulatory Limitations: no limitations History of Present Illness HPI Narrative: Patient presents accompanied by her daughter. Both have had flu-like symptoms for the past 2 days. Has been taking [id number] medication to treat symptoms. Patient is not in any obvious distress Related Data Home Medications ?Medication ?Instructions ?Recorded ?Confirmed ?Last Taken ?Type cetirizine 10 mg tablet (Zyrtec) 10 mg PO DAILY 10/02/23 04/29/24 Unknown History escitalopram oxalate 10 mg tablet 10 mg PO DAILY 02/18/24 04/29/24 Unknown History (Lexapro) Allergies Allergy/AdvReac Type Severity Reaction Status Date / Time Penicillins Allergy Itching Verified 04/29/24 09:39 Review of Systems Review of Systems: All systems reviewed & are unremarkable except as noted in HPI and below Constitutional: Constitutional: Reports no additional constitutional complaints, Reports body ache(s), Reports chills, Reports fever(s), Reports headache(s) and Reports lethargy ENT: Reports system reviewed and no additional complaints, except as documented, Reports nasal congestion, Reports nasal discharge and Reports sore throat Cardiovascular: Cardiovascular: Reports no additional cardiovascular complaints Respiratory: Respiratory: Reports no additional respiratory complaints and Reports cough Gastrointestinal: Gastrointestinal: Reports no additional gastrointestinal complaints [facility] Past Medical History Medical History History of anxiety Surgical History Surgical History History of tubal ligation Hx of tonsillectomy Family History Family History Father Acute myocardial infarction Other , paternal aunt Acute myocardial infarction Unknown Cerebrovascular accident Heart disease Asthma Hypertension Cancer Social History Social History Social History: Active outdoors, frequently camps Smoking status: Never smoker Alcohol intake: never Substance use: never Living arrangements: with family Additional living arrangements comments: and at least 1 child Occupation/Education: unemployed Gender identity (if verbalized by the patient): Female Comments At the time of my signature, I reviewed and agree with the nursing past medical, surgical, social, and family history. There is no relevant family history pertinent to the patient complaint. Exam Const: General: cooperative, no acute distress, alert and awake Orientation/consciousness: oriented to person, oriented to place and oriented to time HENMT: Head: normal to inspection Ears: TM's normal bilaterally Mouth: Yes moist mucous membranes Throat: posterior oropharynx normal Resp: Effort & Inspection: normal respiratory effort and able to speak in complete sentences Auscultation: clear to auscultation bilaterally, no crackles, no rales, no rhonchi and no wheezes Cardio: Palpation: normal PMI Rate: regular rate Rhythm: regular rhythm Heart sounds: S1 normal heart sound present and S2 normal heart sound present Neuro: General: oriented to person, oriented to place and oriented to time Cranial nerves: Yes CN's II-XII intact bilaterally Psych: Appearance: grossly normal Thought process: Normal thought process present Insight: Good insight present (Psych) Judgement: Good judgement present (Psych) Course Course Level of Care: Express Care Visit Vital Signs Vital signs: Vital Signs Temperature 98.5 F 04/29/24 09:34 Pulse Rate 99 04/29/24 09:34 Respiratory Rate 16 04/29/24 09:34 Blood Pressure 100/88 04/29/24 09:34 Pulse Oximetry 99 04/29/24 09:34 Oxygen Delivery Room Air 04/29/24 09:34 Temperature 98.5 F 04/29/24 09:34 Pulse Rate 99 04/29/24 09:34 Respiratory Rate 16 04/29/24 09:34 Blood Pressure 100/88 04/29/24 09:34 Pulse Oximetry 99 04/29/24 09:34 Oxygen Delivery Room Air 04/29/24 09:34 Reviewed MDM - URI/Sore Throat MDM Narrative Medical decision making narrative: Reassuring physical exam. Negative COVID, negative flu, negative strep. Supportive care measures discussed. Patient is most likely infected with influenza, daughter is here with her, she tested positive. Discharge instructions reviewed with patient, as well as provided in writing per nursing staff. The instructions also include specific and strict return/GO TO THE ER as well as f/u information. All questions have been answered, and the patient deny any further questions with discharge and discharge plan. Some parts of this dictation were generated by voice recognition software and may contain typographical and/or grammatical inaccuracies. Differential Diagnosis Differential diagnosis: Likely upper respiratory infection, croup, otitis media, viral infection and influenza Medical Records Attestation: I reviewed the patient's medical records. Lab Data Attestation: I reviewed the patient's lab results. Discharge Plan Discharge Clinical Impression: Influenza Patient Disposition: Home, Self-Care Condition: Stable Instructions: Antibiotic Form, Influenza (ED) Additional Instructions: Use [id number] medications to treat symptoms. Follow with primary care provider. Emergency department for new or worse symptoms Patient Language: Thai Prescriptions: No Action cetirizine [Zyrtec] 10 mg Tablet 10 mg PO DAILY escitalopram oxalate [Lexapro] 10 mg tablet 10 mg PO DAILY Follow-up/Referrals: PHYSICIAN NOT ON STAFF,NONSTAFF [Primary Care Provider] - Stand Alone Forms: Work/School Release IP
[2024-04-29 10:20] LABS: EDCOVIDSCREEN Negative (Negative); EDINFLUASCREEN Negative (Negative); EDINFLUBSCREEN Negative (Negative); EDSTREPNEGPOS1 Negative (Negative)
== END 2024-04-29 10:23 | disposition home or self-care (01) ==
PROVIDERS: Emergency Provider Nurse Practitioner Family
DX: J11.1 Influenza due to unidentified influenza virus with other respiratory manifestations (principal); Z20.822 Contact with and (suspected) exposure to COVID-19; F41.9 Anxiety disorder, unspecified
CPT/HCPCS: 87081; 87426; 87804; 87880; 99213; G0463